=== PATIENT | female | born 1945 | race Caucasian/White ===

== ENCOUNTER → 2017-08-19 | Outpatient (CLI) | payer OTHER | LOC: CIMAGING 15:18 | PROVIDERS: ATTEND Family Medicine | DX: M51.36 Other intervertebral disc degeneration, lumbar region (principal); M43.16 Spondylolisthesis, lumbar region | CPT/HCPCS: 72100-PO ==

== ENCOUNTER 2017-10-22 12:39 | Observation (INO) | payer OTHER ==
--- NOTE | 2017-10-22 12:59 | CPEKG ---
Heart Rate: 67 RR Interval: 896 P-R Interval: 160 QRSD Interval: 88 QT Interval: 436 QTC Interval: 461 P [place]: 63 QRS [place]: 9 T Wave [place]: 43 EKG Severity - ABNORMAL ECG - EKG Impression: SINUS RHYTHM EKG Impression: CONSIDER LEFT VENTRICULAR HYPERTROPHY Electronically Signed By: Zach Craig 22-Oct-2017 14:41:50
[2017-10-22] MEDS ORDERED: NITROGLYCERIN 0.4 MG BTL SL ONE ×2 (13:07→13:34)
[2017-10-22] MEDS ORDERED: NS 1,000 ML IV ONE (13:09)
[2017-10-22] MEDS ORDERED: NITROGLYCERIN 0.4 MG BTL SL PRN ×2 (13:09→16:28)
--- NOTE | 2017-10-22 13:14 | EDPHY ---
H & P Stated Complaint: CP Time Seen by Provider: 10/22/17 12:45 HPI/ROS: This patient describes onset of substernal chest pressure and tightness at rest at 11:30 a.m. Today. She took a 325 mg aspirin without relief and notes no other exacerbating factors. She reports that at times it feels the pain is radiating to the interscapular region of her back. She reports having had similar episodes of discomfort in the past typically resolve after taking aspirin. Since she has ongoing 2/10 substernal discomfort now for about 90 min , she came in driven by her by private vehicle for evaluation. She reports a feeling of mild lightheadedness, difficulty concentrating and fatigue associated with the symptoms. She felt well prior to the onset of the chest pressure. Constitutional: No fevers. Positive mild fatigue HEENT: No URI symptoms or other complaints new line pulmonary: No cough. No dyspnea. No pleuritic pain. Cardiovascular: Mild lightheadedness. No heart palpitations. No leg swelling or calf pain. GI: No nausea vomiting or abdominal pain. : No complaints new line endocrine: Mild diaphoresis earlier. That has resolved. Integumentary: No skin rash Neuro: No headache. No focal numbness tingling weakness. Lymph: No complaints Psychiatric: No complaints Complete review of symptoms is otherwise negative. Source: Patient Exam Limitations: No limitations - Medical/Surgical History PMH: Prior episodes of usually fleeting chest pain including 1 visit here to [facility] in 2014 with an EKG that revealed LVH, normal CBC and metabolic panel at that time She is uncertain of her cholesterol level. She is unaware of any history of hypertension. Hx Asthma: No Hx Chronic Respiratory Disease: No Hx Diabetes: No Hx Cardiac Disease: No Hx Renal Disease: No Hx Cirrhosis: No Hx Alcoholism: No Hx HIV/AIDS: No Hx Splenectomy or Spleen Trauma: No Other PMH: brain aneurysm 2014, OCD, appy as child - Family History Significant Family History: No pertinent family hx - Social History Smoking Status: Former smoker Alcohol Use: None Drug Use: None Additional Social History: She is accompanied by her today. - Physical Exam Exam: General Appearance: Alert, no distress. Eyes: Pupils equal and round no pallor or injection. ENT, Mouth: Mucous membranes moist. Respiratory: There are no retractions, lungs are clear to auscultation. Cardiovascular: Regular rate and rhythm. No murmur gallop rub. No JVD. No peripheral edema or calf tenderness Gastrointestinal: Abdomen is soft and nontender, no masses, bowel sounds normal. Neurological: GCS 15 Skin: Warm and dry, no rashes. Musculoskeletal: Neck is supple nontender. Extremities are symmetrical, full range of motion. Psychiatric: Mood and affect normal DIFFERENTIAL DIAGNOSIS: After history and physical exam differential diagnosis was considered for myocardial ischemic disease, esophageal spasm, GERD, musculoskeletal pain, aortic dissection, pulmonary embolism, pneumothorax, pneumonia Constitutional: Initial Vital Signs Temperature (C) 36.7 C 10/22/17 12:43 Heart Rate 72 10/22/17 12:43 Respiratory Rate 20 10/22/17 12:43 Blood Pressure 162/102 H 10/22/17 12:43 O2 Sat (%) 91 L 10/22/17 12:43 O2 Delivery Mode Nasal Cannula O2 (L/minute) 2 Allergies/Adverse Reactions: ampicillin [Ampicillin] Allergy (Mild, Verified 10/22/17 13:21) Rash Home Medications: Medication Instructions Recorded Anafranil 07/16/09 Fish Oil 10/10/10 GLUCOSAMINE-CHONDR CAPLET 10/10/10 Vit D 03/20/12 Aspirin [Aspirin 325 mg (OTC)] 325 mg PO DAILY 10/31/12 Medical Decision Making - Diagnostics EKG Interpretation: 12 lead EKG performed shortly after arrival at 12:57 p.m. Reveals sinus rhythm at 67 Intervals: Normal throughout [place]: Normal throughout ST segments: J-point elevation in lead V2 and lesser so in lead V1 with LVH by voltage criteria. When compared to an EKG dated 11/17/2014 appreciate no interval change. Overall assessment sinus rhythm with evidence of LVH Repeat EKG performed at 1407 after nitroglycerin and the chest pain-free state to rule out interval change the 1st EKG reveals sinus rhythm at 62 Intervals normal [place] unchanged Overall assessment normal EKG with borderline findings for LVH with no interval change from 1st EKG by my interpretation Imaging Results: Imaging Impressions Chest X-Ray 10/22/17 13:32 Impression: 1. "Double density" at the level of the aortic arch, not seen on previous studies in [address] arteriogram is recommended to exclude a localized dissection. 2. Sequela of old granulomatous disease. Findings and recommendations were discussed with FARHANA CHEEK MD at 14: 00, on 10/22/2017. Two view chest x-ray: Negative by my interpretation for acute cardiopulmonary disease CT angio chest-reviewed with Dr. Carrillo the Radiology reveals a right pulmonary nodule and distention of the ascending aorta to 4.1 cm Imaging: Discussed imaging studies w/ call manager Radiologist (I spoke with Dr. Cui who notes a possible change in the silhouette of the aortic knob on this chest x-ray compared to prior chest x-ray), I viewed and interpreted images myself ED Course/Re-evaluation: Aspirin prior to arrival IV, monitor, normal saline TKO Sublingual nitroglycerin 1 with relief of her chest pressure. She also had resolution of her hypertension. At 1:30 p.m. patient had recurrence of chest pain given a 2nd nitroglycerin sublingual. Will proceed with 0.5 in nitropaste here after Studies: CBC is normal, troponin is normal, D-dimer is normal At 1400 Dr. Cui, radiologist called regarding the appearance of the aortic knob on chest x-ray being slightly different than a prior chest x-ray. Given this patient's history of hypertension and radiation of the pain to the interscapular region with feel she warrants a CT angio chest to rule out dissection, aortic aneurysm or other. Counseled patient regarding this. Will proceed with CT angio chest Discussion: Considering this patient's history moderately suspicious for potential angina, and suspecting that she has undiagnosed hypertension given LVH an EKG and hypertension here, come up with a heart score of 5 on this patient warranting admission for further evaluation. The patient has aortic distension to 4.1 cm is also suggestive of untreated hypertension. I counseled her regarding this. No evidence of aortic dissection, pulmonary embolism or other acute findings on her CT chest. Repeat EKG revealed no interval change from 1st EKG after nitroglycerin in a chest pain-free state. At 2:38 p.m. The patient is being transferred via ALS with no chest pain on 0.5 in nitropaste - Data Points Laboratory Results: 10/22/17 10/22/17 13:13 13:09 POC Sodium 143 mEq/L mEq/L (135-145) POC Potassium 3.8 mEq/L mEq/L (3.3-5.0) POC Chloride 102.0 mEq/L mEq/L (97-110) POC Total CO2 30 mEq/L mEq/L (22-31) POC BUN 19 mg/dL mg/dL (7-23) POC Creatinine 0.6 mg/dL mg/dL (0.6-1.0) POC Glucose 94 mg/dL mg/dL (70-100) POC Calcium 9.3 mg/dL mg/dL (8.5-10.4) POC Troponin I 0.00 ng/mL ng/mL (0.00-0.08) Medications Given: Discontinued Medications Sodium Chloride (Ns) 1,000 mls @ 0 mls/hr IV EDNOW ONE; TKO PRN Reason: Protocol Stop: 10/22/17 13:10 Last Admin: 10/22/17 13:30 Dose: 1,000 mls Nitroglycerin (Nitrostat) 0.4 mg SL EDNOW ONE Stop: 10/22/17 13:08 Last Admin: 10/22/17 13:18 Dose: 0.4 mg Nitroglycerin (Nitro-Bid 2%) 0.5 inch TP EDNOW ONE Stop: 10/22/17 13:39 Last Admin: 10/22/17 13:52 Dose: 0.5 inch Nitroglycerin (Nitrostat) 0.4 mg SL EDNOW ONE Stop: 10/22/17 13:35 Last Admin: 10/22/17 13:34 Dose: 0.4 mg Point of Care Test Results: CBC CBC Collection Date 10/22/17 CBC Collection Time 12:55 WBC 4.5 RBC 5.07 HGB 16.0 HCT 47.7 PLT 236 Neut # 2.6 Neut 58.1 LYMPH # 1.3 LYMPH 29.2 Other WBC # 0.6 Other WBC 12.7 MCV 94.1 Chemistry 10/22/17 10/22/17 13:13 13:09 POC Sodium 143 mEq/L mEq/L (135-145) POC Potassium 3.8 mEq/L mEq/L (3.3-5.0) POC Chloride 102.0 mEq/L mEq/L (97-110) POC Total CO2 30 mEq/L mEq/L (22-31) POC BUN 19 mg/dL mg/dL (7-23) POC Creatinine 0.6 mg/dL mg/dL (0.6-1.0) POC Glucose 94 mg/dL mg/dL (70-100) POC Calcium 9.3 mg/dL mg/dL (8.5-10.4) POC Troponin I 0.00 ng/mL ng/mL (0.00-0.08) Basic Metabolic Panel BMP Collection Date 10/22/17 BMP Collection Time 12:55 D-Dimer D-Dimer Collection Date 10/22/17 D-Dimer Collection Time 12:55 D-Dimer (ng/ml) 146 Departure - Departure Disposition: [facility] Inpatient Acute Clinical Impression: Acute chest pain, Aortic distension, LVH (left ventricular hypertrophy) Condition: Good
[2017-10-22] MEDS ORDERED: NS 1,000 ML IV SCH (13:15)
[2017-10-22] MEDS ORDERED: NITROGLYCERIN 2% 1 GM PACKET TP ONE (13:38)
[2017-10-22] MEDS ORDERED: IOPAMIDOL (ISOVUE 370) 100 ML BTL IV ONE (14:08)
--- NOTE | 2017-10-22 14:09 | CPEKG ---
Heart Rate: 62 RR Interval: 968 P-R Interval: 160 QRSD Interval: 92 QT Interval: 460 QTC Interval: 468 P [place]: 57 QRS [place]: 14 T Wave [place]: 43 EKG Severity - NORMAL ECG - EKG Impression: SINUS RHYTHM Electronically Signed By: Zach Craig 22-Oct-2017 14:41:29
[2017-10-22] MEDS ORDERED: ONDANSETRON 4 MG/2 ML VIAL IVP PRN (14:36)
[2017-10-22] MEDS ORDERED: ONDANSETRON DISINTEGRATING 4 MG TAB PO PRN (14:36)
[2017-10-22] MEDS ORDERED: ACETAMINOPHEN 325 MG TAB PO PRN (14:36)
[2017-10-22] MEDS ORDERED: MAG HYDROX/AL HYDROX/SIMETH 30 ML UDCUP PO ONE (16:39)
[2017-10-22] MEDS ORDERED: HYOSCYAMINE SULFATE 0.125 MG TAB PO ONE (16:39)
[2017-10-22] MEDS ORDERED: LIDOCAINE 2% VISCOUS 15 ML UDCUP PO ONE (16:39)
[2017-10-22] MEDS: LIDOCAINE 4%/MENTHOL 1% PATCH TD SCH (17:06)
--- NOTE | 2017-10-22 17:19 | GHP ---
[f rep st] HISTORY AND PHYSICAL DATE OF ADMISSION: 10/22/2017 CHIEF COMPLAINT: Substernal chest discomfort. PRIMARY CARE PHYSICIAN: Dr. Salvador. HISTORY OF PRESENT ILLNESS: A 72-year-old female with history of hypertension, not treated, anxiety/OCD, depression, presenting with substernal discomfort. She was driving to [employer] this afternoon and noticed discomfort mid chest, 2/ 10 scale. It lasted for an hour and it radiated to her back. She noticed perspiration on her forehead. No nausea, vomiting, or radiation to arm or neck. No numbness or tingling. Denies fevers, chills, or sweats. No cough. She bikes from [place] to the [employer] twice a week and does water aerobics 2 times a week without chest pain or shortness of breath. No PND, orthopnea. At [facility], CTA was done which was negative for PE but showed a 4.1 cm ascending aortic aneurysm as well as a pulmonary nodule. She received nitroglycerin paste and she did not think that changed her pain. Has been taking up to 8 tablets of ibuprofen daily for right hip pain. REVIEW OF SYSTEMS: I completed a 10-point review of systems, negative or as noted in HPI. PAST MEDICAL HISTORY: Hypertension, anxiety, OCD, lower back pain/leg pain, depression. Brain aneurysm status post stent. PAST SURGICAL HISTORY: Appendectomy, breast augmentation bilaterally, tonsillectomy, 2 foot surgeries. FAMILY HISTORY: Both grandfathers had [place]. Skin cancer in the family. SOCIAL HISTORY: Drinks occasional alcohol. Had a 44 pack-year history of tobacco, quit at age 38 next. HOME MEDICATIONS: Aspirin and Anafranil. Advil up to 8 tabs a day. ALLERGIES: Ampicillin. PHYSICAL EXAMINATION: VITAL SIGNS: Temperature 36.6, blood pressure was 162/ 102 at [facility], now 117/70, heart rate in the 60s to 70s, respirations 14-16, 96% on room air. GENERAL: She is well appearing, sitting in bed, no acute distress. HEENT: PERRLA. Moist mucous membranes. CV: Regular rate and rhythm. No murmurs, gallops, or rubs. No lower extremity edema. LUNGS: Clear, no crackles. ABDOMEN: Soft, nontender, nondistended. Positive bowel sounds. : No Benson. MUSCULOSKELETAL: 5/5 upper and lower extremity strength. NEURO: 2 through 12 intact. PSYCH: Alert and oriented x3. LABORATORY DATA: Sodium is 143, potassium 3.8, chloride 102, carbon dioxide 30 , BUN 19, creatinine 0.6, glucose 94, calcium 9.3. Troponin 0.00. EKG is personally reviewed by me. Normal sinus rhythm; LVH, which was seen on prior. CTA: Ascending aortic aneurysm measuring 4.1 cm without dissection. Stable right upper lobe 12 x 9 x 10 mm pulmonary nodule since November 08, 2007. Chest x- ray: No evidence of effusion or pneumonia. ASSESSMENT AND PLAN: 1. Chest discomfort: Differential includes acute coronary syndrome, pulmonary embolus, infection, ulcer. Initial troponin and EKG are negative for ischemia. Left ventricular hypertrophy present on prior. CTA showed a 4.1 cm ascending aortic aneurysm without evidence of dissection. Will monitor on telemetry. Repeat troponin. Does have a HEART score of 5 and has personal history of untreated hypertension, family history. Would be reasonable to check exercise treadmill test in the morning. Will trial a gastrointestinal cocktail, given significant amount of non-steroidal anti-inflammatories. 2. Ascending aortic aneurysm: 4.1 cm. Goal is to control hypertension. BB is first-line, but HR may not tolerate, thus can use Lisinopril. Needs annual ultrasound or CT. 3. Pulmonary nodule: Stable since 2007. Recommend repeat imaging in 1 year. 4. Chronic hip pain: Lidoderm patch and counseled patient on reducing the amount of non-steroidal anti-inflammatories. 5. Obsessive-compulsive disorder/anxiety: Resume home medications. 6. Diet: Regular. 7. Deep venous thrombosis prophylaxis: Lovenox. 8. Patient warrants observation admission, given acute chest discomfort requiring acute coronary syndrome rule out, troponin, EKG, telemetry, and exercise stress test. /[id number]/MODL MTDD
[2017-10-22] MEDS ORDERED: PATCH REMOVAL 1 EA PATCH TD SCH (21:00)
[2017-10-23] MEDS: LIDOCAINE 4%/MENTHOL 1% PATCH TD SCH (07:53)
[2017-10-23] MEDS ORDERED: LISINOPRIL 2.5 MG TAB PO SCH (09:00)
[2017-10-23] MEDS ORDERED: ENOXAPARIN 40 MG/0.4 ML SYR SC SCH (09:00)
--- NOTE | 2017-10-23 09:07 | CPEKG ---
Heart Rate: 67 RR Interval: 896 P-R Interval: 164 QRSD Interval: 98 QT Interval: 452 QTC Interval: 478 P [place]: 63 QRS [place]: 17 T Wave [place]: 55 EKG Severity - ABNORMAL ECG - EKG Impression: SINUS RHYTHM EKG Impression: PROBABLE LEFT ATRIAL ABNORMALITY EKG Impression: LEFT VENTRICULAR HYPERTROPHY Electronically Signed By: Clemente Perera 24-Oct-2017 11:22:39
--- NOTE | 2017-10-23 11:08 | CPR ---
[f rep st] NONINVASIVE CARDIAC PROCEDURE REPORT DATE OF PROCEDURE: 10/23/2017 PROCEDURE PERFORMED: Exercise treadmill stress test. INDICATION FOR PROCEDURE: Atypical chest pain. After informed consent was obtained, the patient was [facility] lab. The patient was able to exercise on a Standard Jake protocol for a total o f 6 minutes and 59 seconds. She had no symptoms or ECG changes with exertion. Vital signs prior to starting test were heart rate of 78, blood pressure 120/80. At peak exercise, blood pressure of 130/ 82. Blood pressure at the end of test 130/80. Patient had no symptoms or ECG changes. Kim treadmill score of 7. Low cardiac risk. IMPRESSION: 1. Normal exercise treadmill stress test. 2. Appropriate exercise tolerance for age. 3. Kim treadmill score of 7, low cardiovascular risk. /[id number]/MODL
[2017-10-23 11:35] VITALS: BP 134/83
--- NOTE | 2017-10-23 12:19 | GCON ---
[f rep st] CONSULTATION CARDIOLOGY CONSULTATION DATE OF CONSULTATION: 10/23/2017 INDICATION FOR CONSULTATION: Atypical chest discomfort and newly discovered dilated ascending aorta at 4.1 cm. CONSULTING PHYSICIAN: Enmanuel Bear MD HISTORY OF PRESENT ILLNESS: The patient is a pleasant 72-year-old female with a past medical of hype rtension, anxiety, OCD, chronic back and hip pain, and history of a brain aneurysm requiring stenting as well as a history of depression, who states she was in her usual state of health until yesterday afternoon. While driving, she began to develop some substernal chest discomfort that she described a s /, nonradiating, not associated with other symptoms. She states she felt "unusual" and returned home. She states the chest discomfort was intermittent throughout the course of the day. She denie s any exacerbating or alleviating factors. She states this discomfort is identical to a discomfort s he has been experiencing for years, but ultimately presented to [facility] for furthe r evaluation due to the increased duration and intensity of the symptoms. She subsequently underwent a CTA which was negative for pulmonary emboli. There is mild atherosclero tic plaque of the coronary arteries detected. Ascending aortic aneurysm was noted measuring 4.1 cm. Descending aorta was within normal limits. Her risk factors for aneurysm include history of hypertension and a 44-pack year history of smoking. She states she smoked approximately 2 packs of cigarettes a day from the age of [age]. She has no p revious history of heart disease. Currently, at the time of my exam, she is pain-free. I supervised her exercise treadmill stress test. She is able to exercise for 6 minutes and 59 second s on a standard Jake protocol without symptoms or ECG changes. Kim treadmill score of 7 equates to low cardiovascular risk. Lab work demonstrated negative troponins x2. ECG demonstrates sinus rhythm with normal intervals and normal axis and borderline for LVH. PAST MEDICAL HISTORY: Hypertension, anxiety, OCD, chronic back and hip pain, depression, history of brain aneurysm requiring stent. PAST SURGICAL: Appendectomy, bilateral breast augmentation, tonsillectomy, and foot surgery. SOCIAL HISTORY: She is . She lives with her . Forty-four pack-year history of smokin g. FAMILY: She reports both her grandparents of heart attacks later in life. EXAM: GENERAL: Patient is awake, alert, oriented, and appropriate. No apparent distress. VITAL SI GNS: Blood pressure of 120/80, heart rate is 78 in sinus rhythm. NECK: There is no evidence of JVP or carotid bruits. LUNGS: Clear to auscultation bilaterally. CARDIAC: S1, S2. Regular rate and rhythm. No murmurs, rubs, or gallops. ABDOMEN: Soft, nontender, nondistended. There is no pulsati le mass or abdominal bruit. EXTREMITIES: No evidence of cyanosis, clubbing or edema. Distal pulses are intact. LABORATORY DATA: Sodium 143, potassium 3.8, chloride 102, bicarb 30, BUN 19, creatinine 0.6. Tropon in negative x2. Lipid profile: Total cholesterol 173, triglycerides 143, LDL 86, HDL 59. IMAGING: ECG demonstrates sinus rhythm with normal intervals and normal axis. CTA demonstrates ascending aortic aneurysm measuring 4.1 cm with no evidence of dissection. Descendi ng thoracic aorta within normal limits. Mild atherosclerotic plaque of the coronary arteries. No ev idence of pulmonary emboli. There was a pulmonary nodule noted. Exercise treadmill stress test, Kim treadmill score of 7, no ECG changes, no symptoms, low cardiac r isk. IMPRESSION: 1. Atypical chest pain. 2. Ascending aortic aneurysm. 3. Mild coronary artery disease noted on CTA of the chest. 4. Hypertension. DISCUSSION: Patient is a pleasant 72-year-old female with multiple coronary risk factors including h ypertension, smoking history, who presented with atypical chest pain. Her workup has been unremarkab le with troponins negative x2 and exercise treadmill stress test was negative for ischemia. She has been found to have a dilated ascending aorta. Risk factors include hypertension and smoking history. No family history of any aortic aneurysms. RECOMMENDATIONS: In the setting of atherosclerotic plaque, would recommend statin therapy. Would re commend initiating atorvastatin 20 mg daily. Recommend initiating low-dose beta lexis in the setti ng of aortic aneurysm. Would recommend metoprolol tartrate 25 mg p.o. b.i.d. PLAN: 1. Start atorvastatin 20 mg once daily. 2. Start metoprolol tartrate 25 mg p.o. b.i.d. 3. Continue aspirin 81 mg daily. 4. Arrange for outpatient echocardiogram. 5. Follow up in my office after completion of echocardiogram. 6. Goal LDL of less than 70. /[id number]/MODL
--- NOTE | 2017-10-23 13:30 | PDDCSUM ---
Discharge Summary Discharge Summary: Dates of service: 10/22-10/23/17 Consultations: cardiology Procedures performed: chest CTA, treadmill stress test Hospital course by problem: # chest pain: atypical with negative w/u in house. Query if this is related to GI sxs given patient using 8-10 ibuprofen per day and also just completing a course of prednisone both for her hip pain--discussed with patient, will have her start a course of PPI and consider f/u with GI if not improving, recommend no more ibuprofen. Appreciate cardiology input. They do recommend starting atorvastatin, metoprolol and continuing asa given calcifications noted on CT and asc aortic aneurysm as next. # ascending aortic aneurysm: noted at 4.1cm, discussed with cardiology, they will arrange to have her f/u with them in clinic in 6 months for ongoing surveillance. # hip pain: as per problem number 1, recommending tylenol and lidoderm patch in favor of ibuprofen # pulm nodule: stable x 10 years dc home f/u with cardiology for ongoing surveillance of asc aortic aneurysm f/u with PCP for ongoing mgmt of hip pain > 35 min spent in dc more than half in coordination of care
== END 2017-10-23 14:40 | disposition home or self-care (01) ==
LOC: CED 12:39 → CEDHOLD 13:38 → F2W 15:20
PROVIDERS: ADMIT Internal Medicine; ATTEND Internal Medicine
DX: R07.89 Other chest pain (principal); I71.2 Thoracic aortic aneurysm, without rupture; R91.1 Solitary pulmonary nodule; I10 Essential (primary) hypertension; M25.551 Pain in right hip; F41.8 Other specified anxiety disorders; F42.9 Obsessive-compulsive disorder, unspecified; Z87.891 Personal history of nicotine dependence
CPT/HCPCS: 71046; 71275; 93005; 93017; 97161; G0378; G8978; G8979; G8980; J1650; Q9967; 80048-PO; 84484-PO

== ENCOUNTER → 2018-07-06 | Outpatient (CLI) | payer OTHER | LOC: CIMAGING 11:22 | PROVIDERS: ATTEND Internal Medicine | DX: M24.831 Other specific joint derangements of right wrist, not elsewhere classified (principal) | CPT/HCPCS: 73110-PO ==

== ENCOUNTER → 2018-10-08 | Outpatient (CLI) | payer OTHER | LOC: FIMAGING 12:35 ==